=== PATIENT | male | born 1995 | race Caucasian/White ===

== ENCOUNTER 2019-06-01 14:46 | Emergency (ER) | payer OTHER ==
[2019-06-01 15:03] VITALS: BP 115/62
--- NOTE | 2019-06-01 15:36 | UC ---
Minor Trauma HPI - HPI Summary HPI Summary: 23-year-old male presents with complaints of mid back pain. States he was descending his steps this morning when he slipped and fell backwards striking his lower thoracic back and the edge of the step. States he immediately got up and pain was minimal however later in the day he was changing a tire when he felt a pop in his back in the same location. States pain is a constant ache that worsens with bending or twisting. Denies numbness, tingling, weakness of the lower extremities, or loss of bowel or bladder control. - History of Current Complaint Chief Complaint: UCBackPain Stated Complaint: BACK INJ Time Seen by Provider: 06/01/19 15:09 Hx Obtained From: Patient Pain Intensity: 8 - Allergies/Home Medications Allergies/Adverse Reactions: Allergies Allergy/AdvReac Type Severity Reaction Status Date / Time Sulfa (Sulfonamide Allergy Difficulty Verified 06/01/19 15:03 Antibiotics) Breathing PMH/Surg Hx/FS Hx/Imm Hx Previously Healthy: Yes - Denies significant PMH - Surgical History Surgical History: Yes Surgery Procedure, Year, and Place: tonsils - Family History Known Family History: Positive: Non-Contributory - Social History Occupation: Employed Full-time Lives: With Family Alcohol Use: None Substance Use Type: None Smoking Status (MU): Heavy Every Day Tobacco Smoker Amount Used/How Often: 1 ppd Length of Time of Smoking/Using Tobacco: since age 9 Have You Smoked in the Last Year: No Review of Systems All Other Systems Reviewed And Are Negative: Yes Constitutional: Positive: Negative Skin: Negative: Bruising Respiratory: Negative: Shortness Of Breath, Cough Cardiovascular: Negative: Palpitations, Chest Pain Gastrointestinal: Negative: Abdominal Pain, Vomiting, Nausea Genitourinary: Positive: Negative Musculoskeletal: Positive: Other: - See HPI Neurological: Negative: Weakness, Paresthesia, Numbness Physical Exam - Summary Physical Exam Summary: GENERAL APPEARANCE: Alert and cooperative, obese young adult male who appears to be in no acute distress. HEAD: Atraumatic. Normocephalic. NECK: Neck supple, non-tender. No midline tenderness or deformity. Full ROM. CARDIAC: Normal S1 and S2. No S3, S4 or murmurs. Rhythm is regular. There is no peripheral edema, cyanosis or pallor. Extremities are warm and well perfused. Capillary refill is less than 2 seconds. Peripheral pulses intact. LUNGS: Clear to auscultation without rales, rhonchi, wheezing or diminished breath sounds. ABDOMEN: Positive bowel sounds. Soft, nondistended, nontender. No guarding or rebound. No masses or hepatosplenomegally. MUSKULOSKELETAL: ROM intact to all extremities. No joint erythema or tenderness. Normal muscular development. Normal gait. BACK: Mild midline tenderness of the lower thoracic spine without deformity or ecchymosis noted. No paraspinous tenderness or muscular spasm. SKIN: Skin normal color, texture and turgor with no lesions or eruptions. Triage Information Reviewed: Yes Vital Signs: Initial Vital Signs Temp 99.9 F 06/01/19 14:56 Pulse 107 06/01/19 14:56 Resp 18 06/01/19 14:56 BP 115/62 06/01/19 14:56 Pulse Ox 97 06/01/19 14:56 Vital Signs Reviewed: Yes Diagnostics - Radiology No standard instances Radiology Interpretation Completed By: Radiologist Summary of Radiographic Findings: Order Information: THORACIC SPINE 2 VWS. INDICATION: Back injury. COMPARISON: There are no relevant prior studies available for comparison. TECHNIQUE: AP and lateral films of the dorsal spine were obtained. FINDINGS: Imaging is degraded by the patient's body habitus. The bone mineralization is within normal limits. Mild compression deformities are noted in the mid thoracic spine at the apex of the kyphotic curvature. There is no spondylolisthesis. The intervertebral disc heights are grossly maintained. The imaged lungs are clear. IMPRESSION: Mild compression deformities in the mid to lower thoracic spine. Minor Trauma Course/Dx - Course Course Of Treatment: 23-year-old male presents with complaints of mid back pain. States he was descending his steps this morning when he slipped and fell backwards striking his lower thoracic back and the edge of the step. States he immediately got up and pain was minimal however later in the day he was changing a tire when he felt a pop in his back in the same location. States pain is a constant ache that worsens with bending or twisting. Denies numbness, tingling, weakness of the lower extremities, or loss of bowel or bladder control. Afebrile. Vital signs stable. The patient had mild midline tenderness of the lower thoracic spine without deformity or ecchymosis noted. No paraspinous tenderness or muscular spasm. Remainder of exam was unremarkable. Patient was medicated with naproxen 500 mg PO for the pain. X-ray of the thoracic spine showed mild compression deformities are noted in the mid thoracic spine at the apex of the kyphotic curvature. I reviewed these findings with the patient and we discussed that I'm unsure if these findings are directly related to his fall as they do not fit his mechanism of injury however I'm recommending he follow-up with neurosurgery within 7 days for further evaluation. I'm recommending conservative treatment for acute back pain at this time including NSAIDs and heat therapy. Anticipatory guidance and warning symptoms were reviewed with the patient. Verbalizes understanding and agrees with plan of care. - Differential Dx/Diagnosis Differential Diagnosis/HQI/PQRI: Contusion(s), Fracture, Strain Provider Diagnosis: Acute back pain, Compression deformity of vertebra Discharge ED - Sign-Out/Discharge Documenting (check all that apply): Patient Departure All imaging exams completed and their final reports reviewed: Yes - Discharge Plan Condition: Stable Disposition: HOME Prescriptions: Naproxen [Naproxen 500 mg tab] 500 mg PO Q12HR #30 tablet Patient Education Materials: Back Pain (ED) Forms: *Work Release Referrals: No Primary Care Phys,NOPCP [Primary Care Provider] - Srini Segura MD [Medical Doctor] - 7 Days Additional Instructions: The x-ray performed in the clinic today showed no evidence of some compression deformities of the mid to lower thoracic spine. I cannot say definitively that this is a direct result of your fall but will need further evaluation. With back pain you should try to remain as active as possible however he should avoid heavy lifting, strenuous activities, or any activities that cause pain. Take naproxen 500 mg every 12 hours with food for the next 5 days then may take every 12 hours as needed for pain. Using a heating pad to the affected area for 15-20 minutes at least 4 times a day. Follow-up with neurosurgery within 7 days for further evaluation. Call for an appointment. Seek immediate medical attention in the emergency room if you have severe pain that is not managed with your pain medication, he developed numbness, tingling, or weakness of the lower extremities, you are unable to ambulate, he was control of her bowel or bladder, or have any worsening of symptoms. - Billing Disposition and Condition Condition: STABLE Disposition: Home
[2019-06-01] MEDS ORDERED: Naproxen TAB* 250 MG PO ONE (15:56)
== END 2019-06-01 16:26 | disposition home or self-care (01) ==
LOC: UCCORT 14:46
DX: M43.8X4 Other specified deforming dorsopathies, thoracic region (principal); M54.9 Dorsalgia, unspecified; F17.210 Nicotine dependence, cigarettes, uncomplicated; Z88.2 Allergy status to sulfonamides
CPT/HCPCS: 72070; 99202; A9270-GY; G0463

== ENCOUNTER 2019-10-04 19:36 | Emergency (ER) | payer OTHER ==
[2019-10-04 20:15] VITALS: BP 117/67
[2019-10-04] MEDS ORDERED: Cephalexin CAP* 500 MG PO ONE (21:06)
--- NOTE | 2019-10-04 21:08 | UC ---
Lower Extremity/Ankle HPI - HPI Summary HPI Summary: 23 yo male had right little toe surgery one month ago saw Cell Operator one week later for suture removal now toe red and swollen x 1 week scant drainage on his feet all day not wearing his post op shoe - History of Current Complaint Chief Complaint: UCSkin Stated Complaint: WOUND ON RIGHT PINKY TOE Time Seen by Provider: 10/04/19 20:45 Hx Obtained From: Patient Onset/Duration: Gradual Onset, Lasting Days Severity Initially: Moderate Severity Currently: Moderate Pain Intensity: 6 Pain Scale Used: 0-10 Numeric Aggravating Factor(s): Standing, Ambulation Alleviating Factor(s): Rest Able to Bear Weight: Yes Feet (Multiple View): 1 - red/swollen/no purulent d/c - Allergies/Home Medications Allergies/Adverse Reactions: Allergies Allergy/AdvReac Type Severity Reaction Status Date / Time Sulfa (Sulfonamide Allergy Difficulty Verified 10/04/19 20:09 Antibiotics) Breathing Home Medications: Home Medications Cephalexin CAP* [Keflex CAP*] 500 mg PO QID #28 cap 10/04/19 [Rx] Medical Marijuana 1 david DAILY PRN 10/04/19 [History Confirmed 10/04/19] Mupirocin 2% OINT* [Bactroban 2 % Oint*] 1 applic TOPICAL TID #1 tube 10/04/19 [ Rx] PMH/Surg Hx/FS Hx/Imm Hx Previously Healthy: Yes - Surgical History Surgical History: Yes Surgery Procedure, Year, and Place: tonsils - Family History Known Family History: Positive: Hypertension - Social History Alcohol Use: Rare Substance Use Type: None Substance Use Comment - Amount & Last Used: medical marijuana Smoking Status (MU): Heavy Every Day Tobacco Smoker Type: eCigarettes Amount Used/How Often: 1 ppd Length of Time of Smoking/Using Tobacco: since age 9 Have You Smoked in the Last Year: No Review of Systems All Other Systems Reviewed And Are Negative: Yes Constitutional: Positive: Negative Skin: Positive: Other - see HPI Eyes: Positive: Negative ENT: Positive: Negative Respiratory: Positive: Negative Cardiovascular: Positive: Negative Gastrointestinal: Positive: Negative Genitourinary: Positive: Negative Motor: Positive: Negative Neurovascular: Positive: Negative Musculoskeletal: Positive: Edema - right little toe Neurological/Mental Status: Positive: Negative Psychological: Positive: Negative Physical Exam Triage Information Reviewed: Yes Appearance: Well-Appearing, No Pain Distress, Well-Nourished Vital Signs: Initial Vital Signs Temp 97.8 F 10/04/19 20:10 Pulse 85 10/04/19 20:10 Resp 16 10/04/19 20:10 BP 117/67 10/04/19 20:10 Pulse Ox 98 10/04/19 20:10 Vital Signs Reviewed: Yes Eyes: Positive: Conjunctiva Clear ENT: Positive: Hearing grossly normal, Uvula midline. Negative: Nasal congestion, Nasal drainage, Trismus, Muffled voice, Hoarse voice Dental Exam: Normal Neck: Positive: Supple, Nontender Respiratory: Positive: Lungs clear, Normal breath sounds, No respiratory distress, No accessory muscle use Cardiovascular: Positive: RRR, No Murmur Abdominal Exam: Normal Bowel Sounds: Positive: Present Musculoskeletal: Positive: Strength Intact, ROM Intact Neurological Exam: Normal Neurological: Positive: Alert Psychological Exam: Normal Lower Extremity Course/Dx - Differential Dx/Diagnosis Provider Diagnosis: Cellulitis of fifth toe, right Discharge ED - Sign-Out/Discharge Documenting (check all that apply): Patient Departure All imaging exams completed and their final reports reviewed: No Studies - Discharge Plan Condition: Stable Disposition: HOME Prescriptions: Cephalexin CAP* [Keflex CAP*] 500 mg PO QID #28 cap Mupirocin 2% OINT* [Bactroban 2 % Oint*] 1 applic TOPICAL TID #1 tube Patient Education Materials: Cellulitis (ED) Forms: *Work Release Referrals: Zeeshan Arreola MD [Primary Care Provider] - Additional Instructions: soak in warm soapy water twice daily dry apply thin film of bactroban ointment dressing rest elevate I suggest you call you visual education director and get rechecked in a few days - Billing Disposition and Condition Condition: STABLE Disposition: Home
== END 2019-10-04 21:21 | disposition home or self-care (01) ==
LOC: UCCORT 19:36
DX: L03.031 Cellulitis of right toe (principal); F17.290 Nicotine dependence, other tobacco product, uncomplicated; Z88.2 Allergy status to sulfonamides
CPT/HCPCS: 99212; A9270-GY; G0463